=== PATIENT | female | born 1965 | race American Indian/Alaskan Native ===

== ENCOUNTER 2018-05-25 07:22 | Observation (INO) | payer BC ==
--- NOTE | 2018-05-25 07:48 | C.PDOC ---
History Of Present Illness 52 y/o obese female with hx of newly diagnosed htn, started on lisinopril/hctz about 1 month ago, not always compliant, hasn't taken in few days,c/o right sided cp since Tuesday; pt initially thought it was gas or heartburn and is t aking celia-seltzer with no improvement. no sob or cough. pain worse with exertion with no radiation. denies abdominal pain, nausea,vomiting. Time Seen by Provider: 05/25/18 07:45 Chief Complaint (Nursing): Chest Pain History Per: Patient History/Exam Limitations: no limitations Onset/Duration Of Symptoms: Days (4) Current Symptoms Are (Timing): Still Present Severity: Moderate Quality: Pressure Associated Symptoms: denies: Nausea, Dyspnea Exacerbating Factors: Exertion Past Medical History Reviewed: Historical Data, Nursing Documentation, Vital Signs Vital Signs: Last Vital Signs Temp 97.7 F 05/25/18 07:25 Pulse 60 05/25/18 07:25 Resp 20 05/25/18 07:25 BP 187/129 H 05/25/18 07:25 Pulse Ox 100 05/25/18 07:25 - Medical History PMH: HTN Surgical History: No Surg Hx Family History: States: [place] (mother in 50s) - Social History Hx Alcohol Use: No Hx Substance Use: No - Immunization History Hx Tetanus Toxoid Vaccination: No Hx Influenza Vaccination: No Hx Pneumococcal Vaccination: No Review Of Systems Constitutional: Negative for: Fever, Chills Cardiovascular: Positive for: Chest Pain Respiratory: Negative for: Cough, Shortness of Breath Gastrointestinal: Positive for: Nausea. Negative for: Vomiting, Abdominal Pain Musculoskeletal: Negative for: Neck Pain, Arm Pain Skin: Negative for: Rash Neurological: Negative for: Weakness, Numbness Physical Exam - Physical Exam Appears: Non-toxic, No Acute Distress Skin: Warm, Dry Head: Atraumatic, Normacephalic Eye(s): bilateral: Normal Inspection Oral Mucosa: Moist Cardiovascular: Rhythm Regular, No Murmur, Other (right sided reproducible tende rness) Respiratory: No Decreased Breath Sounds, No Wheezing Gastrointestinal/Abdominal: Bowel Sounds, Soft, No Tenderness, No Guarding, No Rebound Extremity: No Calf Tenderness, No Swelling Pulses: Left Dorsalis Pedis: Normal, Right Dorsalis Pedis: Normal Neurological/Psych: Oriented x3, Normal Speech, Normal Cognition, Normal Motor, Normal Sensation ED Course And Treatment - Laboratory Results Result Diagrams: 05/25/18 08:25 05/25/18 08:25 ECG: Interpreted By Me, Viewed By Me Interpretation Of ECG: Normal sinus rhythm at 63bpm. Cannot rule out Anterior infarct, age undetermined. Abnormal EKG. O2 Sat by Pulse Oximetry: 100 Medical Decision Making Medical Decision Making: pt with right sided cp, worse with exertion x 4 days with elevated htn. will get ekg, cxr. asa. labs, monitor. re-check bp and treat. 0920 pt with abnl ekg, no old ekg to compare; neg trop. right side cp x 4 days with elevated bp, mother with fatal mi in her 5-s; given pt's risk factors, will admit to telemetry. discussed with DR Quintana (covering for Rajni Maharaj, whom pt's pmd Hemant Gan admits to for in patient. ) Disposition Discussed With .: Danny Quintana Doctor Will See Patient In The: Hospital - Disposition Disposition: HOSPITALIZED Disposition Time: 09:22 Condition: STABLE - Clinical Impression Clinical Impression: Chest pain, Hypertension
[2018-05-25 07:50] VITALS: BMI 40.3
[2018-05-25] MEDS ORDERED: Aspirin 325 mg EC Tablets PO STA (07:59)
[2018-05-25 08:34] LABS: BASO % 0.7 % (0.0-2.0); EOS # 0.1 K/uL (0.0-0.7); HEMOGLOBIN 13.4 g/dL (11.0-16.0); LYMPH % 27.4 % (20.0-40.0); MEAN CELL VOLUME 87.7 fL (81.0-99.0); MEAN CORPUSCULAR HEMOGLOBIN 28.5 pg (27.0-31.0); MEAN CORPUSCULAR HGB CONC 32.5 g/dL (33.0-37.0); MEAN PLATELET VOLUME 8.9 fL (7.2-11.7); MONO # 0.2 K/uL (0.0-0.8); MONO % 6.7 % (0.0-10.0); NEUT # 2.3 K/uL (1.8-7.0); NEUT % 63.2 % (50.0-75.0); NRBC % 0.1 % (0.0-2.0); RBC 4.73 Mil/uL (3.80-5.20); RED CELL DISTRIBUTION WIDTH 15.2 % (11.5-14.5); WHITE BLOOD COUNT 3.6 K/uL (4.8-10.8)
[2018-05-25] MEDS ORDERED: Aspirin 325 mg EC Tablets PO ONE (08:51)
[2018-05-25 08:56] LABS: ALB/GLOB RATIO 1.2 (1.0-2.1); ALBUMIN 4.5 g/dL (3.5-5.0); ALT/SGPT 51 U/L (9-52); AST/SGOT 33 U/L (14-36); BLOOD UREA NITROGEN 16 mg/dL (7-17); CALCIUM 11.9 mg/dl (8.6-10.4); GFR NON-AFRICAN AMERICAN > 60; LIPASE 54 U/L (23-300)
[2018-05-25] MEDS ORDERED: Morphine 4 MG/ML VIAL ONE (09:32)
[2018-05-25 09:35] LABS: HCG,QUALITATIVE URINE NEGATIVE (NEGATIVE)
[2018-05-25 09:52] LABS: SQUAMOUS EPITHIAL 10 /hpf (0-5); URINE BILIRUBIN NEGATIVE (NEGATIVE); URINE BLOOD 1+ (NEGATIVE); URINE CALCIUM OXALATE CRYSTALS OCC /hpf (<OCC); URINE CLARITY Hazy (Clear); URINE COLOR Yellow (YELLOW); URINE GLUCOSE (UA) NORMAL (Normal); URINE LEUKOCYTE ESTERASE NEG Leu/uL (Negative); URINE PROTEIN 1+ mg/dL (NEGATIVE); URINE UROBILINOGEN NORMAL mg/dL (0.2-1.0)
--- NOTE | 2018-05-25 10:31 | RAD ---
HISTORY: chest pain COMPARISON: None available TECHNIQUE: Chest PA and lateral FINDINGS: Examination limited by habitus and hypoinflation. LUNGS: No focal consolidation. Please note that chest x-ray has limited sensitivity for the detection of pulmonary masses. PLEURA: No significant pleural effusion identified. No definite pneumothorax . CARDIOVASCULAR: Heart size appears top normal. No significant atherosclerotic calcification identified. OSSEOUS STRUCTURES: Degenerative changes. VISUALIZED UPPER ABDOMEN: Unremarkable. OTHER FINDINGS: None. IMPRESSION: Hypoinflation. No focal consolidation.
--- NOTE | 2018-05-25 13:43 | CP.PCM.HP ---
Past Patient History - Past Social History Smoking Status: Never Smoked - CARDIAC Hx Hypertension: Yes - PSYCHIATRIC Hx Substance Use: No - SURGICAL HISTORY Hx Surgeries: No - ANESTHESIA Hx Anesthesia: No Meds Allergies/Adverse Reactions: Allergies Allergy/AdvReac Type Severity Reaction Status Date / Time No Known Allergies Allergy Verified 05/25/18 07:25 Results - Vital Signs Recent Vital Signs: Last Vital Signs Temp 98.2 F 05/25/18 12:03 Pulse 54 L 05/25/18 10:57 Resp 18 05/25/18 10:57 BP 176/102 H 05/25/18 10:57 Pulse Ox 99 05/25/18 10:57 - Labs Result Diagrams: 05/25/18 08:25 05/25/18 08:25 Labs: Laboratory Results - last 24 hr 05/25/18 05/25/18 05/25/18 08:25 08:25 09:27 WBC 3.6 L RBC 4.73 Hgb 13.4 Hct 41.4 MCV 87.7 MCH 28.5 MCHC 32.5 L RDW 15.2 H Plt Count 257 MPV 8.9 Neut % (Auto) 63.2 Lymph % (Auto) 27.4 Elk % (Auto) 6.7 Eos % (Auto) 2.0 Baso % (Auto) 0.7 Neut # (Auto) 2.3 Lymph # (Auto) 1.0 Elk # (Auto) 0.2 Eos # (Auto) 0.1 Baso # (Auto) 0.0 Sodium 142 Potassium 3.8 Chloride 106 Carbon Dioxide 29 Anion Gap 11 BUN 16 Creatinine 0.5 L Est GFR ( Amer) > 60 Est GFR (Non-Af Amer) > 60 Random Glucose 102 Calcium 11.9 H Total Bilirubin 0.5 AST 33 ALT 51 Alkaline Phosphatase 96 Troponin I < 0.0120 Total Protein 8.1 Albumin 4.5 Globulin 3.6 Albumin/Globulin Ratio 1.2 Lipase 54 Urine Color Yellow Urine Clarity Hazy Urine pH 5.0 Ur Specific Hendrix 1.020 Urine Protein 1+ H Urine Glucose (UA) Normal Urine Ketones Negative Urine Blood 1+ H Urine Nitrate Negative Urine Bilirubin Negative Urine Urobilinogen Normal Ur Leukocyte Esterase Neg Urine WBC (Auto) 5 Urine RBC (Auto) 11 H Ur Squamous Epith Cells 10 H Calcium Oxalate Crystal Occ H Urine HCG, Qual Negative
[2018-05-25 16:45] LABS: CK-MB 1.91 ng/mL (0.0-3.38)
[2018-05-25] MEDS ORDERED: Nitroglycerin 2% Ointment Foilpak UD TOP STA (17:37)
[2018-05-25 18:04] VITALS: RESP 20
[2018-05-26 01:42] LABS: CK-MB 1.36 ng/mL (0.0-3.38)
[2018-05-26] MEDS: Enoxaparin 40 mg Syringe SC SCH (10:05)
--- NOTE | 2018-05-26 14:27 | CP.PCM.CON ---
History of Present Illness - History of Present Illness History of Present Illness: 52 y/o obese female with hx of newly diagnosed htn, started on lisinopril/hctz about 1 month ago, not always compliant, hasn't taken in few days,c/o right sided cp since Tuesday; pt initially thought it was gas or heartburn and is rose yang-seltzer with no improvement. no sob or cough. pain worse with exertion with no radiation. denies abdominal pain, nausea,vomiting. 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 Non smoker, no ETOH or substance abuse Review of Systems - Review of Systems All systems: reviewed and no additional remarkable complaints except Past Patient History - Past Social History Smoking Status: Never Smoked - CARDIAC Hx Hypertension: Yes - PSYCHIATRIC Hx Substance Use: No - SURGICAL HISTORY Hx Surgeries: No - ANESTHESIA Hx Anesthesia: No Meds Allergies/Adverse Reactions: Allergies Allergy/AdvReac Type Severity Reaction Status Date / Time No Known Allergies Allergy Verified 05/25/18 07:25 - Medications Medications: Current Medications Acetaminophen (Tylenol 325mg Tab) 650 mg PO Q6 PRN PRN Reason: Headache Last Admin: 05/26/18 10:12 Dose: 650 mg Amlodipine Besylate (Norvasc) 10 mg PO DAILY [facility] Last Admin: 05/26/18 10:05 Dose: 10 mg Enoxaparin Sodium (Lovenox) 40 mg SC DAILY [facility] Last Admin: 05/26/18 10:05 Dose: 40 mg Hydrochlorothiazide (Microzide) 12.5 mg PO DAILY [facility] Last Admin: 05/26/18 10:05 Dose: 12.5 mg Lisinopril (Zestril) 20 mg PO DAILY [facility] Last Admin: 05/26/18 10:15 Dose: 20 mg Physical Exam - Constitutional Appears: No Acute Distress - Head Exam Head Exam: ATRAUMATIC, NORMAL INSPECTION, NORMOCEPHALIC - Eye Exam Eye Exam: EOMI. absent: Scleral icterus - ENT Exam ENT Exam: Mucous Membranes Moist - Neck Exam Neck exam: Positive for: Normal Inspection - Respiratory Exam Respiratory Exam: Clear to Auscultation Bilateral, NORMAL BREATHING PATTERN - Cardiovascular Exam Cardiovascular Exam: REGULAR RHYTHM, +S1, +S2. absent: Gallop, JVD, Systolic Murmur - GI/Abdominal Exam GI & Abdominal Exam: Normal Bowel Sounds, Soft - Extremities Exam Extremities exam: Positive for: normal inspection, pedal pulses present. Negative for: pedal edema - Neurological Exam Neurological exam: Alert, Oriented x3 - Psychiatric Exam Psychiatric exam: Normal Affect, Normal Mood - Skin Skin Exam: Intact, Normal Color, Warm Results - Vital Signs Recent Vital Signs: Last Vital Signs Temp 98.3 F 05/26/18 07:00 Pulse 65 05/26/18 07:00 Resp 20 05/26/18 07:00 BP 168/113 H 05/26/18 07:00 Pulse Ox 96 05/26/18 07:00 - Labs Result Diagrams: 05/25/18 08:25 05/25/18 08:25 Labs: Laboratory Results - last 24 hr 05/25/18 05/26/18 16:08 01:15 Total Creatine Kinase 109 106 CK-MB (Mass) 1.91 1.36 Troponin I < 0.0120 < 0.0120 - EKG Data EKG Interpreted by: Myself - Imaging and Cardiology Chest x-ray Status: Image reviewed by me Assessment & Plan - Assessment and Plan (Free Text) Assessment: 52-year-old with hypertension and chest pain hypertension is uncontrolled and remains mild to moderate I have directly seen images from EKG and chest x-ray - EKG is normal sinus rhythm without acute ischemic changes - chest x-ray shows clear lung moreira - troponin, creatinine, hemoglobin are all within normal limits - there is no suspicion for acute coronary syndrome, exam is negative for CHF/ volume overload, auscultation was negative for any pathologic murmur. Agree with lisinopril 20 daily, norvasc 10 and HCTZ 25 daily > f/u as outpatient to monitor and adjust > consider outpatient eval for sleep apnea > weight loss, caloric restricitions and low salt diet. > encourage physical activity. - Date & Time Date: 05/26/18 Time: 15:12
--- NOTE | 2018-05-26 17:35 | CARD ---
APPROVED REPORT Date of service: 05/25/2018 EKG Measurement Heart [id number] <Conclusion> Normal sinus rhythm Cannot rule out Anterior infarct, age undetermined Abnormal ECG
--- NOTE | 2018-05-26 18:22 | CP.PCM.PN ---
Subjective - Date & Time of Evaluation Date of Evaluation: 05/26/18 Time of Evaluation: 18:21 Objective - Vital Signs/Intake and Output Vital Signs (last 24 hours): Temp Pulse Resp BP Pulse Ox 98 F 64 20 123/70 98 05/26/18 15:00 05/26/18 15:00 05/26/18 15:00 05/26/18 15:00 05/26/18 15:00 Intake and Output: 05/26/18 05/26/18 06:59 18:59 Intake Total 240 Balance 240 - Medications Medications: Current Medications Acetaminophen (Tylenol 325mg Tab) 650 mg PO Q6 PRN PRN Reason: Headache Last Admin: 05/26/18 10:12 Dose: 650 mg Amlodipine Besylate (Norvasc) [address] [facility] Last Admin: 05/26/18 10:05 Dose: 10 mg Enoxaparin Sodium (Lovenox) [address] [facility] Last Admin: 05/26/18 10:05 Dose: 40 mg Hydrochlorothiazide (Microzide) 12.[address] [facility] Last Admin: 05/26/18 10:05 Dose: 12.5 mg Lisinopril (Zestril) [address] [facility] Last Admin: 05/26/18 10:15 Dose: 20 mg - Labs Labs: 05/25/18 08:25 05/25/18 08:25
[2018-05-26] MEDS: Alum-Mag Hydrox-Simethicone Susp (30 mL) PO PRN (19:05)
[2018-05-27] MEDS: Enoxaparin 40 mg Syringe SC SCH (09:45)
[2018-05-27] MEDS ORDERED: POLYETHYLENE GLYCOL 3350 17 GM/Dose PACKET PO ONE (15:15)
--- NOTE | 2018-05-27 16:44 | CP.PCM.PN ---
Subjective - Date & Time of Evaluation Date of Evaluation: 05/27/18 Time of Evaluation: 16:44 Objective - Vital Signs/Intake and Output Vital Signs (last 24 hours): Temp Pulse Resp BP Pulse Ox 98.5 F 60 20 126/76 97 05/27/18 07:00 05/27/18 07:00 05/27/18 07:00 05/27/18 07:00 05/27/18 07:00 - Medications Medications: Current Medications Acetaminophen (Tylenol 325mg Tab) 650 mg PO Q6 PRN PRN Reason: Headache Last Admin: 05/26/18 10:12 Dose: 650 mg Al Hydrox/Mg Hydrox/Simethicone (Maalox Plus 30 Ml) 30 ml PO Q8H PRN PRN Reason: Indigestion / Heartburn Last Admin: 05/26/18 19:05 Dose: 30 ml Amlodipine Besylate (Norvasc) 10 mg PO DAILY [facility] Last Admin: 05/27/18 09:44 Dose: 10 mg Enoxaparin Sodium (Lovenox) 40 mg SC DAILY [facility] Last Admin: 05/27/18 09:45 Dose: 40 mg Hydrochlorothiazide (Microzide) 12.5 mg PO DAILY [facility] Last Admin: 05/27/18 09:45 Dose: 12.5 mg Lisinopril (Zestril) 20 mg PO DAILY [facility] Last Admin: 05/27/18 09:44 Dose: 20 mg Pantoprazole Sodium (Protonix Inj) 40 mg IVP DAILY [facility] Last Admin: 05/27/18 09:45 Dose: 40 mg - Labs Labs: 05/25/18 08:25 05/25/18 08:25
--- NOTE | 2018-05-27 17:01 | CT ---
Date of service: 05/27/2018 PROCEDURE: CT Chest without contrast HISTORY: R side chest pain COMPARISON: Plain radiographs from 05/25/2017. TECHNIQUE: Contiguous axial images were obtained through the chest without intravenous contrast enhancement. Sagittal and coronal reconstructions were performed. Radiation dose: Total exam DLP = 888.99 mGy-cm. This CT exam was performed using one or more of the following dose reduction techniques: Automated exposure control, adjustment of the mA and/or kV according to patient size, and/or use of iterative reconstruction technique. FINDINGS: LUNGS: The lungs are well inflated. There is a 3 mm nodule subpleural nodule in the anterior right middle lobe (series 3, image 67). There is subsegmental atelectasis in the lingula and both lower lobes, worse in the left lower lobe. No focal consolidation. There are no endobronchial lesions. MEDIASTINUM: There aneurysm of the ascending aorta measuring 4.2 x 4.4 cm. Normal sized heart. Main pulmonary artery unremarkable. No pericardial effusion. No lymphadenopathy. No aortic atherosclerotic calcification. PLEURA: No pleural fluid. No pneumothorax. BONES: No fracture. No destructive lesion. UPPER ABDOMEN: There is a 3.0 cm myelolipoma in the right adrenal gland. No discrete nodule in the left adrenal gland. OTHER FINDINGS: None. IMPRESSION: No acute findings. Subsegmental atelectasis in the lingula and both lower lobes, worse on the left. No active pulmonary disease. Aneurysm of the ascending aorta measuring 4.2 x 4.4 cm. 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
[2018-05-27] MEDS: Alum-Mag Hydrox-Simethicone Susp (30 mL) PO PRN (18:46)
[2018-05-28] MEDS: Alum-Mag Hydrox-Simethicone Susp (30 mL) PO PRN ×2 (06:52→13:01)
[2018-05-28 09:03] VITALS: BP 123/79; PULSE 69; TEMP 98.6; O2SAT 96
[2018-05-28] MEDS: Enoxaparin 40 mg Syringe SC SCH (09:27)
== END 2018-05-28 14:31 | disposition home or self-care (01) ==
LOC: C.ER 07:22 → C.9E 09:25 → C.6T 16:23
PROVIDERS: ADMIT Internal Medicine Critical Care Medicine; ATTEND Internal Medicine Critical Care Medicine
DX: R07.89 Other chest pain (principal); I10 Essential (primary) hypertension; E66.9 Obesity, unspecified; Z68.41 Body mass index [BMI] 40.0-44.9, adult
CPT/HCPCS: 36415; 71046; 71250; 80053; 81001; 83690; 84484; 84703; 85025; 93005; 99285; C9113; G0378; J1650